=== PATIENT | female | born 1990 | race Caucasian/White ===

== ENCOUNTER 2023-10-28 19:24 | Emergency (ER) | payer OTHER ==
[2023-10-28 19:31] VITALS: BP 122/75; PULSE 105; RESP 20; TEMP 97.9
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
== END 2023-10-28 21:36 | disposition left against medical advice (07) ==
LOC: EC 19:24
DX: T75.1XXA Unspecified effects of drowning and nonfatal submersion, initial encounter (principal); F17.200 Nicotine dependence, unspecified, uncomplicated; Z88.6 Allergy status to analgesic agent; Z53.29 Procedure and treatment not carried out because of patient's decision for other reasons; W69.XXXA Accidental drowning and submersion while in natural water, initial encounter
CPT/HCPCS: 71046; 99283